=== PATIENT | female | born 1940 | race Caucasian/White ===

== ENCOUNTER 2018-07-18 09:30 | Emergency (ER) | payer MEDICARE, OTHER ==
--- NOTE | 2018-07-18 09:58 | EDM.PDOC ---
ED HPI GENERAL MEDICAL PROBLEM - General Chief Complaint: Laceration Stated Complaint: fall on ice Time Seen by Provider: 07/18/18 09:45 Source of Information: Reports: Patient History Limitations: Reports: No Limitations - History of Present Illness INITIAL COMMENTS - FREE TEXT/NARRATIVE: 77 YO WF presents to ER complaining of right elbow injury after a slip and fall on ice on her driveway. Pt denies hitting or head or neck pain. Pt states she landed on her right elbow. Pt with a large laceration to right elbow. Pt with full range of motion but states there's pain with movement in right wrist, shoulder and elbow. Pt denies any other injury. Onset: Today Duration: Hour(s): (1) Location: Reports: Upper Extremity, Right Quality: Reports: Ache Severity: Moderate Improves with: Reports: Rest Worsens with: Reports: Movement Associated Symptoms: Reports: No Other Symptoms. Denies: Syncope - Related Data Allergies Allergy/AdvReac Type Severity Reaction Status Date / Time ibuprofen Allergy Rash Verified 10/31/17 21:01 minocycline Allergy Redness Verified 10/31/17 21:01 Penicillins Allergy Hives Verified 10/31/17 21:01 Sulfa (Sulfonamide Allergy Hives Verified 10/31/17 21:01 Antibiotics) suture Allergy Other Verified 07/18/18 10:07 Home Meds: Home Meds FLUoxetine [PROzac] 60 mg PO DAILY 01/21/16 [History] Lisinopril [Prinivil] 2.5 mg PO DAILY 01/21/16 [History] Pantoprazole [ProTONIX] 40 mg PO DAILY 01/21/16 [History] Furosemide 20 mg PO DAILY PRN 10/31/17 [History] atorvaSTATin [Lipitor] 10 mg PO BEDTIME 10/31/17 [History] Past Medical History - Past Health History Medical/Surgical History: Denies Medical/Surgical History HEENT History: Reports: Cataract, Hard of Hearing Cardiovascular History: Reports: Hypertension Respiratory History: Reports: Sleep Apnea, Other (See Below) Other Respiratory History: CPAP for sleep hypoxia Gastrointestinal History: Reports: Cholelithiasis, Diverticulosis, GERD, Hemorrhoids, Other (See Below) Genitourinary History: Reports: Urinary Incontinence CERTIFIED FAMILY MEDIATOR History: Reports: Musculoskeletal History: Reports: Osteoarthritis, Other (See Below) Other Musculoskeletal History: in thumbs Neurological History: Reports: Migraines Psychiatric History: Reports: Anxiety, Depression Endocrine/Metabolic History: Reports: Obesity/BMI 30+ Dermatologic History: Reports: Other (See Below) Other Dermatologic History: current cellulitis to R post calf - Infectious Disease History Infectious Disease History: Reports: Chicken Pox, Rubella - Past Surgical History HEENT Surgical History: Reports: Cataract Surgery Cardiovascular Surgical History: Reports: None, Other (See Below) Other Cardiovascular Surgeries/Procedures: varicose veins - with vein ablasions GI Surgical History: Reports: Cholecystectomy, Colonoscopy, EGD, Other (See Below) Other GI Surgeries/Procedures: bowel resection for diverticuly 1999 Female Surgical History: Reports: Section, Hysterectomy Musculoskeletal Surgical History: Reports: None Oncologic Surgical History: Reports: Biopsy of Breast Social & Family History - Family History Oncologic: Reports: Liver - Caffeine Use Caffeine Use: Reports: Coffee ED ROS GENERAL - Review of Systems Review Of Systems: See Below Constitutional: Reports: No Symptoms HEENT: Reports: No Symptoms Respiratory: Reports: No Symptoms Cardiovascular: Reports: No Symptoms Endocrine: Reports: No Symptoms GI/Abdominal: Reports: No Symptoms : Reports: No Symptoms Musculoskeletal: Reports: Shoulder Pain Skin: Reports: Wound (12cm laceration to right elbow) Neurological: Reports: No Symptoms Psychiatric: Reports: No Symptoms Hematologic/Lymphatic: Reports: No Symptoms Immunologic: Reports: No Symptoms ED EXAM, SKIN/RASH Exam: See Below Exam Limited By: No Limitations General Appearance: Alert, WD/WN, No Apparent Distress Head: Atraumatic, Normocephalic Neck: Normal Inspection, Supple, Non-Tender, Full Range of Motion Respiratory/Chest: No Respiratory Distress, Lungs Clear, Normal Breath Sounds, No Accessory Muscle Use, Chest Non-Tender Cardiovascular: Normal Peripheral Pulses, Regular Rate, Rhythm, No Edema, No Gallop, No JVD, No Murmur, No Rub GI/Abdominal: Normal Bowel Sounds, Soft, Non-Tender, No Organomegaly, No Distention, No Abnormal Bruit, No Mass Back Exam: Normal Inspection, Full Range of Motion, NT Extremities: Normal Range of Motion, No Pedal Edema, Normal Capillary Refill Neurological: Alert, Oriented, CN II-XII Intact, Normal Cognition, Normal Gait, Normal Reflexes, No Motor/Sensory Deficits Psychiatric: Normal Affect, Normal Mood Skin: Wound/Incision (12 cm laceration to right elbow) Lymphatic: No Adenopathy ED SKIN PROCEDURES - Laceration/Wound Repair Right Posterior Elbow Lac/Wound length In cm: 12 Appearance: Superficial Distal NVT: Neuro & Vascular Intact Anesthetic Type: Local Local Anesthesia - Lidocaine (Xylocaine): 1% with EPI Local Anesthetic Volume: Other (20) Exploration/Debridement/Repair: Wound Explored Closed with: Sutures Suture Size: other (5.0) # of Sutures: 10 Suture Type: Nylon Sterile Dressing Applied: Provider Tetanus Status Addressed: Yes Complications: No Course - Vital Signs Last Recorded V/S: Last Vital Signs Temp 36.8 C 07/18/18 09:56 Pulse 57 L 07/18/18 09:56 Resp 20 07/18/18 09:56 BP 203/99 H 07/18/18 09:56 Pulse Ox 92 L 07/18/18 09:56 - Orders/Labs/Meds Orders: Active Orders 24 hr Category Date Time Status Elbow 2V Rt [CR] Stat Exams 07/18/18 09:57 Ordered Shoulder Comp Rt [CR] Stat Exams 07/18/18 09:57 Ordered Wrist Comp Min 3V Rt [CR] Stat Exams 07/18/18 09:57 Ordered Meds: Medications Discontinued Medications Generic Name Dose Route Start Last Admin Trade Name Freq PRN Reason Stop Dose Admin Lidocaine/Epinephrine 20 ml 07/18/18 09:59 Xylocaine 1% With Epinephrine 1:100,000 INJECT 07/18/18 10:00 ONETIME ONE - Radiology Interpretation Free Text/Narrative:: right elbow- NAD right wrist- NAD right shoulder- NAD Departure - Departure Time of Disposition: 11:20 Disposition: Home, Self-Care 01 Condition: Good Clinical Impression: Laceration of elbow Qualifiers: Encounter type: initial encounter Laterality: right Qualified Code(s): S51.011A - Laceration without foreign body of right elbow, initial encounter Elbow contusion Qualifiers: Encounter type: initial encounter Laterality: right Qualified Code(s): S50.01XA - Contusion of right elbow, initial encounter Shoulder sprain Qualifiers: Encounter type: initial encounter Shoulder sprain type: unspecified sprain Laterality: right Qualified Code(s): S43.401A - Unspecified sprain of right shoulder joint, initial encounter Wrist sprain Qualifiers: Encounter type: initial encounter Laterality: right Qualified Code(s): S63.501A - Unspecified sprain of right wrist, initial encounter - Discharge Information Instructions: Elbow Contusion, Laceration Care, Adult, Skin Tear Care, Wrist Sprain, Adult, Shoulder Sprain Referrals: PCP,Not In Area [Primary Care Provider] - Rhea Beatty MD [Physician] - Forms: ED Department Discharge Additional Instructions: 1. discharge home 2. suture removal 10-14 days 3. wound care instruction given 4. motrin 600mg PO Q6 PRN pain 5. ice/sling 6. follow up with PCP for further evaluation and treatment 7. return to ER for worsening symptoms - My Orders Last 24 Hours: My Active Orders 07/18/18 09:57 Elbow 2V Rt [CR] Stat Shoulder Comp Rt [CR] Stat Wrist Comp Min 3V Rt [CR] Stat - Assessment/Plan Last 24 Hours: My Active Orders 07/18/18 09:57 Elbow 2V Rt [CR] Stat Shoulder Comp Rt [CR] Stat Wrist Comp Min 3V Rt [CR] Stat Assessment:: 1. fall 2. 12cm laceration to elbow 3. right elbow contusion 4. right wrist sprain 5. right shoulder sprain Plan: 1. discharge home 2. suture removal 10-14 days 3. wound care instruction given 4. motrin 600mg PO Q6 PRN pain 5. ice/sling 6. follow up with PCP for further evaluation and treatment 7. return to ER for worsening symptoms
[2018-07-18] MEDS ORDERED: Lidocaine 1% with EPINEPHrine 1:100,000 20 ML MDV INJECT ONE (09:59)
--- NOTE | 2018-07-18 11:10 | CR ---
[id number] RAD/RAD Shoulder Right 2V Min Exam: RAD Shoulder Right 2V Min Indication:FALL Comparison: No prior imaging for comparison. Discussion: Acromioclavicular and glenohumeral osteoarthritis. No fracture or dislocation. Impression: No acute findings. Kev Coffey MD 07/18/18 1110 Thank you for allowing us to participate in the care of your patient.
--- NOTE | 2018-07-18 11:11 | CR ---
[id number] RAD/RAD Elbow Right 2V Exam: RAD Elbow Right 2V Indication:FALL. WORRIED ABOUT RADIAL HEAD. Comparison: No prior imaging for comparison. Discussion: Negative for fracture or dislocation. Ulnotrochlear osteoarthritis. No radiographically evident joint effusion. Impression: No acute findings. Kev Coffey MD 07/18/18 1111 Thank you for allowing us to participate in the care of your patient.
[2018-07-18 11:15] VITALS: BP 188/81
--- NOTE | 2018-07-18 11:18 | CR ---
[id number] RAD/RAD Wrist Right 3V Min Exam: RAD Wrist Right 3V Min Indication:FALL. Comparison: No prior imaging for comparison. 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 Mild changes of osteophytosis in the carpus. No fracture or dislocation. Impression: No acute findings. Kev Coffey MD 07/18/18 1117 Thank you for allowing us to participate in the care of your patient.
== END 2018-07-18 11:33 | disposition home or self-care (01) ==
LOC: KA.ED 09:30
DX: S51.011A Laceration without foreign body of right elbow, initial encounter (principal); S50.01XA Contusion of right elbow, initial encounter; S43.401A Unspecified sprain of right shoulder joint, initial encounter; S63.501A Unspecified sprain of right wrist, initial encounter; I10 Essential (primary) hypertension; F41.9 Anxiety disorder, unspecified; F32.9 Major depressive disorder, single episode, unspecified; Z88.6 Allergy status to analgesic agent; Z88.2 Allergy status to sulfonamides; Z88.0 Allergy status to penicillin; W00.0XXA Fall on same level due to ice and snow, initial encounter; Z79.899 Other long term (current) drug therapy; Z88.8 Allergy status to other drugs, medicaments and biological substances
CPT/HCPCS: 12004; 12034; 73030-RT; 73070-RT; 73110-RT; 99283; 99283-25